=== PATIENT | female | born 1965 | race African-American/Black ===

== ENCOUNTER → 2020-12-19 | Outpatient (CLI) | payer OTHER ==
--- NOTE | 2020-12-19 13:13 | FL ---
EXAMINATION TYPE: FL barium swallow DATE OF EXAM: 12/19/2020 CLINICAL INDICATION: 55-year-old female K21.00 GERD with esophagitis COMPARISON: None Total Fluoroscopy Time: 1 minute 30 seconds 40 images obtained. FINDINGS: The swallowing mechanism is normal and hypopharyngeal anatomy is preserved. The cervical and thoracic portions have a normal course and caliber and normal motility. The mucosa is normal and no persistent filling defect is encountered. There is a moderate sized sliding hiatal hernia. The size varies by respiration. There is spontaneous severe gastroesophageal reflux that occurs variably with normal respiration. IMPRESSION: 1. Moderate-sized sliding hiatal hernia and severe spontaneous gastroesophageal reflux. Both of these vary with normal respiration. 2. No mucosal abnormality or abnormal filling defect.
== END | disposition home or self-care (01) ==
LOC: RADUSWWP 09:42 → MERGE 10:00
PROVIDERS: ATTEND Surgery Plastic and Reconstructive Surgery
DX: K21.9 Gastro-esophageal reflux disease without esophagitis (principal); K44.9 Diaphragmatic hernia without obstruction or gangrene
CPT/HCPCS: 74220

== ENCOUNTER 2021-01-09 09:36 | Day surgery (SDC) | payer OTHER ==
[2021-01-07 15:58] VITALS: BMI 31.9
--- NOTE | 2021-01-09 07:40 | P.GSHP ---
History of Present Illness H&P Date: 01/09/21 CHIEF COMPLAINT: GERD HISTORY OF PRESENT ILLNESS: The patient is a 55-year-old female who presents reports gastroesophageal reflux disease. Upper endoscopy was offered for further evaluation and management. PAST MEDICAL HISTORY: Please see list. PAST SURGICAL HISTORY: Please see list. MEDICATIONS: Please see list. ALLERGIES: Please see list. SOCIAL HISTORY: No illicit drug use FAMILY HISTORY: No reports of Crohn disease or ulcerative colitis. REVIEW OF ORGAN SYSTEMS: CONSTITUTIONAL: No reports of fevers or chills. GI: Denies any blood in stools or constipation. PHYSICAL EXAM: VITAL SIGNS: Stable GENERAL: Well-developed and pleasant in no acute distress. HEENT: No scleral icterus. Extraocular movements grossly intact. Moist buccal mucosa. NECK: Supple without lymphadenopathy. CHEST: Unlabored respirations. Equal bilateral excursions. CARDIOVASCULAR: Regular rate and rhythm. Distal 2+ pulses. ABDOMEN: Soft, nondistended. MUSCULOSKELETAL: No clubbing, cyanosis, or edema. ASSESSMENT: 1. Gastroesophageal reflux disease PLAN: 1. Recommend proceeding with an upper endoscopy Past Medical History Past Medical History: COPD, Deep Vein Thrombosis (DVT), GERD/Reflux Additional Past Medical History / Comment(s): DVT - LEFT LEG History of Any Multi-Drug Resistant Organisms: None Reported Past Surgical History: Orthopedic Surgery Additional Past Surgical History / Comment(s): ARTHROSCOPIC RIGHT KNEE SURGERY, COLONOSCOPU Past Anesthesia/Blood Transfusion Reactions: No Reported Reaction Smoking Status: Former smoker - Past Family History Father Family Medical History: Cancer Additional Family Medical History / Comment(s): LUNG CANCER Brother(s) Family Medical History: Cancer Additional Family Medical History / Comment(s): COLON CANCER Medications and Allergies Home Medications Medication Instructions Recorded Confirmed Type Pravastatin Sodium [Pravachol] 80 mg PO HS 01/07/21 01/07/21 History Rivaroxaban [Xarelto] 20 mg PO DAILY 01/07/21 01/07/21 History Allergies Allergy/AdvReac Type Severity Reaction Status Date / Time No Known Allergies Allergy Verified 01/07/21 15:38
[~2021-01-09 09:36] MED LIST: LACTATED RINGERS 1,000 ML IV SCH; LIDOCAINE 1% (10MG/ML) FOR IV START INTRADERMA PRN
[2021-01-09 09:51] VITALS: TEMP 97.2
[2021-01-09] MEDS ORDERED: LIDOCAINE 1% INJ 10MG/ML (20 ML MDV) ONE (10:57)
[2021-01-09] MEDS ORDERED: PROPOFOL 10 MG/ML 20 ML VIAL IV ONE (10:57)
[2021-01-09 11:33] VITALS: BP 116/80; PULSE 76; RESP 16
--- NOTE | 2021-01-09 11:40 | P.PCN ---
Date of Procedure: 01/09/21 Description of Procedure: PREOPERATIVE DIAGNOSIS: Gastroesophageal reflux disease. POSTOPERATIVE DIAGNOSIS: Duodenitis Gastritis. Gastroesophageal reflux disease. Diaphragmatic hiatal hernia OPERATION: Esophagogastroduodenoscopy with biopsies along antrum and duodenum and esophagus SURGEON: Lexie Santiago MD ANESTHESIA: MAC. INDICATIONS: The patient is a 55-year-old female who presents with a history of reflux disease. Benefits and risks of the procedure were described. Informed consent was obtained. DESCRIPTION: The patient was brought into the endoscopy suite and laid in the left lateral decubitus position. An Olympus gastroscope was passed along the posterior oropharynx down to the distal esophagus where the squamocolumnar junction was encountered at 32 cm from the incisors. The stomach was entered and no bile reflux was found. Additional findings are listed below. Biopsies with cold forceps were obtained of the antrum. The first through third portion of the duodenum was examined and cold biopsy forceps obtained for celiac disease. Retroflexion of the scope confirmed Hill grade 4 lower esophageal valve. The squamocolumnar junction demonstrated LA grade B erosive esophagitis. The stomach was desufflated. The patient tolerated the procedure well. FINDINGS: Squamocolumnar junction 33 cm from the incisors. Diaphragmatic hiatus at 38 cm. Hiatal hernia, 5 cm Hill grade 5 lower esophageal valve. LA grade C erosive esophagitis. Cold biopsies obtained for celiac disease Chronic gastritis RECOMMENDATIONS: Upper endoscopy as needed. Plan - Discharge Summary Discharge Rx Participant: No New Discharge Prescriptions: Continue Rivaroxaban [Xarelto] 20 mg PO DAILY Pravastatin Sodium [Pravachol] 80 mg PO HS Discharge Medication List Pravastatin Sodium [Pravachol] 80 mg PO HS 01/07/21 [History] Rivaroxaban [Xarelto] 20 mg PO DAILY 01/07/21 [History] Follow up Appointment(s)/Referral(s): Lexie Santiago MD [STAFF PHYSICIAN] - 01/24/21 Patient Instructions/Handouts: Hiatal Hernia (DC) Discharge Disposition: HOME SELF-CARE
== END 2021-01-09 12:28 | disposition home or self-care (01) ==
LOC: ORWHC2ENDO 09:36
PROVIDERS: ATTEND Surgery Plastic and Reconstructive Surgery
DX: K22.10 Ulcer of esophagus without bleeding (principal); K29.50 Unspecified chronic gastritis without bleeding; A04.8 Other specified bacterial intestinal infections; K22.70 Barrett's esophagus without dysplasia; K21.9 Gastro-esophageal reflux disease without esophagitis; K44.9 Diaphragmatic hernia without obstruction or gangrene; J44.9 Chronic obstructive pulmonary disease, unspecified; Z86.718 Personal history of other venous thrombosis and embolism; Z98.890 Other specified postprocedural states; Z87.891 Personal history of nicotine dependence; Z80.1 Family history of malignant neoplasm of trachea, bronchus and lung; Z80.0 Family history of malignant neoplasm of digestive organs; Z79.01 Long term (current) use of anticoagulants; Z79.899 Other long term (current) drug therapy
CPT/HCPCS: 88305; 88342; 43239; J2001; J2704

== ENCOUNTER → 2021-01-09 | Outpatient (CLI) | payer OTHER ==
--- NOTE | 2021-01-10 10:27 | MR ---
EXAMINATION TYPE: MR knee RT wo con DATE OF EXAM: 01/09/2021 COMPARISON: Outside bilateral knee x-rays December 19, 2020 HISTORY: Right knee pain, painful kneecap, and swelling for over 10 years TECHNIQUE: Multiplanar, multisequence imaging of the right knee is performed without IV contrast. FINDINGS: MEDIAL MENISCUS: Anterior and posterior horns are intact without tear. LATERAL MENISCUS: Anterior and posterior horns are intact without tear. CRUCIATE LIGAMENTS: The anterior and posterior cruciate ligaments are intact and unremarkable. COLLATERAL LIGAMENTS: The medial collateral ligament and lateral collateral ligament complex are inta ct and unremarkable. EXTENSOR MECHANISM: Visualized quadriceps and patellar tendons are intact. EFFUSION: Small to moderate size suprapatellar joint effusion. POPLITEAL CYST: Moderate size popliteal/carl cyst measuring 6.7 cm long axis sagittal image 8. TRICOMPARTMENT SPACES: [id number] tricompartment joint space loss and mild tricompartment spurr ing. CARTILAGE: Some early chondromalacia patella with some cartilaginous loss upper to mid pole level and some fissuring. No full-thickness loss seen. Fissuring and cartilaginous loss medial tibiofemoral co mpartment without full-thickness loss. BONE MARROW SIGNAL: No focal abnormal marrow signal is appreciated. OTHER: No additional significant abnormality is appreciated. IMPRESSION: No meniscal or ligamentous tear is seen. Mild to moderate tricompartment degenerative vijay nges as detailed above. Small to moderate size suprapatellar joint effusion. Moderate-sized popliteal cyst.
== END | disposition home or self-care (01) ==
LOC: RADMRIMAIN 19:18
PROVIDERS: ATTEND Orthopaedic Surgery
DX: M25.461 Effusion, right knee (principal)

== ENCOUNTER → 2021-02-21 | Outpatient (CLI) | payer OTHER ==
[2021-02-21 14:13] LABS: Basophils % (A) 1 %; Eosinophils # (A) 0.2 k/uL (0-0.7); Eosinophils % (A) 2 %; HCT 42.5 % (34.0-46.0); HGB 13.3 gm/dL (11.4-16.0); Lymphocytes # (A) 2.7 k/uL (1.0-4.8); Lymphocytes % (A) 37 %; MCH 26.3 pg (25.0-35.0); MCHC 31.3 g/dL (31.0-37.0); Mean Platelet Volume 7.3; Monocytes # (A) 0.5 k/uL (0-1.0); Monocytes % (A) 7 %; Neutrophils # (A) 3.7 k/uL (1.3-7.7); Neutrophils % (A) 51 %; Platelet Count 252 k/uL (150-450); RBC 5.06 m/uL (3.80-5.40); RDW 12.9 % (11.5-15.5); WBC 7.3 k/uL (3.8-10.6)
[2021-02-21 14:31] LABS: Potassium 4.6 mmol/L (3.5-5.1)
== END | disposition home or self-care (01) ==
LOC: LABPAT 12:30
PROVIDERS: ATTEND Orthopaedic Surgery
DX: Z01.818 Encounter for other preprocedural examination (principal); I49.1 Atrial premature depolarization; M23.91 Unspecified internal derangement of right knee
CPT/HCPCS: 36415; 80051; 85025; 93005

== ENCOUNTER 2021-02-28 10:16 | Day surgery (SDC) | payer OTHER ==
[2021-02-21 10:31] VITALS: BMI 32.5
--- NOTE | 2021-02-27 14:36 | HP ---
HISTORY AND PHYSICAL DATE OF SURGERY: 02/28/2021 Grecia Hackett is a 55-year-old patient seen with progressive right knee pain. We discussed options for treatment. She elected to proceed with right knee arthroscopy. Consent was obtained. PAST MEDICAL HISTORY: Hyperlipidemia, gastroesophageal reflux disease. PAST SURGICAL HISTORY: Right knee arthroscopy. DAILY MEDICATIONS: Prilosec, pravastatin, ibuprofen, Xarelto. ALLERGIES: NONE. SOCIAL HISTORY: She denies tobacco use. PHYSICAL EVALUATION OF THE RIGHT KNEE: Range of motion is zero to 130. Mild effusion. Tenderness, medial joint line. Tenderness, lateral joint line. Positive medial Tony's. Ligaments stable. Hip rotation without pain. Distal neurovascular exam intact. Radiographs of the right knee revealed mild osteoarthritis. MRI right knee revealed osteoarthritis and effusion. IMPRESSION: 1. Internal derangement of right knee with osteochondral tear. 2. Hyperlipidemia. 3. Gastroesophageal reflux disease. PLAN: Right knee arthroscopy with chondroplasty and debridement. MMODL / IJN: [id number] /
[~2021-02-28 10:16] MED LIST changes: +DEXAMETHASONE SOD PHOSPHATE 4 MG/ML 1 ML VIAL IV ONE; +HYDROmorphone 0.5 MG/0.5 ML SYRINGE IVP PRN; +METOCLOPRAMIDE 5 MG/ML 2 ML VIAL IVP PRN; +ONDANSETRON 4 MG/2 ML VIAL IVP ONE
[2021-02-28 10:39] VITALS: RESP 16
[2021-02-28] MEDS ORDERED: LIDOCAINE 1% (10MG/ML) FOR IV START INTRADERMA ONE (10:41)
[2021-02-28] MEDS ORDERED: LACTATED RINGERS 1,000 ML IV ONE (10:42)
[2021-02-28] MEDS ORDERED: SUCCINYLCHOLINE CHLORIDE 100 MG/5 ML SYR IV ONE (13:01)
[2021-02-28] MEDS ORDERED: fentaNYL (PF) 50 MCG/ML 2 ML AMP ONE (13:01)
[2021-02-28] MEDS ORDERED: MIDAZOLAM 2 MG/2 ML VIAL ONE (13:01)
[2021-02-28] MEDS ORDERED: PROPOFOL 10 MG/ML 20 ML VIAL IV ONE (13:01)
[2021-02-28] MEDS ORDERED: BUPIVACAINE (PF) 0.25% 30 ML VIAL INTRAARTIC ONE ×2 (13:09→13:42)
--- NOTE | 2021-02-28 14:00 | P.OP ---
Date of Procedure: 02/28/21 Preoperative Diagnosis: Internal derangement right knee Postoperative Diagnosis: 1. Tear lateral meniscus right knee 2. Grade 4 chondromalacia medial femoral condyle right knee 3. Grade 2 chondromalacia lateral femoral condyle right knee 4. Grade 4 chondromalacia patellofemoral joint right knee 5. Reactive synovitis medial, lateral and suprapatellar compartments right knee Procedure(s) Performed: 1. Arthroscopic partial lateral meniscectomy right knee 2. Arthroscopic microfracture medial femoral condyle right knee 3. Arthroscopic chondroplasty medial femoral condyle, lateral femoral condyle and patella right knee 4. Arthroscopic partial synovectomy medial, lateral and suprapatellar compartments right knee Anesthesia: BILLA, local Surgeon: Rush Blair Estimated Blood Loss (ml): 8 Pathology: none sent Condition: stable Disposition: PACU Indications for Procedure: 55-year-old patient seen with progressive right knee pain. After treatment options were discussed, she elected to proceed with arthroscopy. Operative Findings: See description of procedure Description of Procedure: Patient was taken to the operative suite. Patient underwent a general anesthetic by the department of anesthesia. Patient was given preoperative antibiotics. The right lower extremity was placed in a well-padded arthroscopic leg sharma. The right leg was prepped and draped in the normal sterile orthopedic fashion. A lateral parapatellar and suprapatellar incision was made. Trochars were inserted. Arthroscopy was initiated. Suprapatellar pouch revealed diffuse thick reactive synovitis. The patellofemoral joint appeared to articulate congruently. There were grade 3 chondromalacia changes of patella and grade 3/4 chondromalacia changes of the femoral sulcus with large osteochondral tears present. The scope was guided into the medial gutter. No loose bodies or plica were identified. The scope was then guided into the medial compartment. A medial parapatellar incision was made. Trocar inserted followed by probe. The medial meniscus was probed and was found to be stable. There was an area of grade 3/4 chondromalacia medial femoral condyle with some osteochondral flap tears present. There was some reactive synovitis anteriorly. I performed a chondroplasty of the medial femoral condyle getting down to stable osteochondral tissue. I performed a partial synovectomy decompressing the reactive synovitis anteriorly. There was good decompression of synovitis. There was good stability of the residual osteochondral surface medial femoral condyle. I noted an area of grade 4 chondromalacia central portion medial femoral condyle. I performed a microfracture to the area penetrating the bone with resultant bleeding at the microfracture site. The residual osteochondral surface was again found to be stable. Scope and probe were then guided into the intercondylar notch. Cruciates were identified, probed and found to be stable. The scope and probe were then guided into lateral compartment. There was a complex tear posterior horn lateral meniscus. There were grade 2 chondromalacia changes along the lateral femoral condyle weightbearing surface with some osteochondral flap tears. There was thick reactive synovitis anteriorly. I performed a partial lateral meniscectomy getting down to stable meniscal tissue. I performed a chondroplasty of the lateral femoral condyle getting down to stable osteochondral tissue. I performed a partial synovectomy decompressing the reactive synovitis. The residual meniscus was stable. The residual osteochondral surface appeared stable. There was good decompression of the synovitis. The scope was in guided back into the suprapatellar compartment. I introduced a motorized shaver into the super patellar compartment. I debrided some piecemeal fragments of meniscus that I encountered. I performed a chondroplasty of the patella and femoral sulcus getting down to stable osteochondral tissue. I performed a partial synovectomy decompressing the reactive synovitis. The shaver was removed. There was good decompression of synovitis. The residual articular surface appeared stable now noting some exposed bone and femoral sulcus area. I now took one more look on the entire knee, no residual debris. Instruments were now removed from the joint. The joint was infiltrated with .25% Marcaine. Steri-Strips were applied to the portal sites. Sterile dressings were applied. The patient was placed into a DOMINIC hose. No tourniquet was utilized. The patient was awakened, transferred to a bed and taken to recovery stable satisfactory condition.
[2021-02-28 14:10] VITALS: TEMP 97.3
[2021-02-28] MEDS ORDERED: HYDROcodone/APAP 5-325MG 1 EACH TAB ONE (14:42)
[2021-02-28] MEDS ORDERED: HYDROcodone/APAP 5-325MG 1 EACH TAB PO ONE (14:42)
[2021-02-28 15:04] VITALS: BP 143/86; PULSE 94
== END 2021-02-28 15:27 | disposition home or self-care (01) ==
LOC: OR 10:16
PROVIDERS: ATTEND Orthopaedic Surgery
DX: M23.91 Unspecified internal derangement of right knee (principal); M23.200 Derangement of unspecified lateral meniscus due to old tear or injury, right knee; M22.41 Chondromalacia patellae, right knee; M65.861 Other synovitis and tenosynovitis, right lower leg; E78.5 Hyperlipidemia, unspecified; K21.9 Gastro-esophageal reflux disease without esophagitis; Z87.891 Personal history of nicotine dependence; Z86.718 Personal history of other venous thrombosis and embolism; Z98.890 Other specified postprocedural states; Z79.01 Long term (current) use of anticoagulants; Z79.1 Long term (current) use of non-steroidal anti-inflammatories (NSAID); Z79.899 Other long term (current) drug therapy
CPT/HCPCS: 29881; 29879; J2250; J1100; J2765; J0690; J2405; J3010; J0330; J2704

== ENCOUNTER → 2021-07-18 | Outpatient (CLI) | payer OTHER ==
--- NOTE | 2021-07-24 07:34 | MM ---
Reason for Exam: Screening (asymptomatic). Last mammogram was performed 1 year(s) and 8 month(s) ago. Risk Values: Betina 5 year model risk: 0.8%. NCI Lifetime model risk: 5.3%. Tissue Density: There are scattered fibroglandular densities. Findings: Analyzed By CAD. There is no suspicious group of microcalcifications or new suspicious mass in either breast. Overall Assessment: Negative, BI-RAD 1 Management: Screening Mammogram of both breasts in 1 year. A clinical breast exam by your physician is recommended on an annual basis and results should be correlated with mammographic findings. Electronically signed and approved by: Josafat Etienne M.D. Radiologis
== END | disposition home or self-care (01) ==
LOC: RADMAMWWP 15:42
PROVIDERS: ATTEND Family Medicine
DX: Z12.31 Encounter for screening mammogram for malignant neoplasm of breast (principal)
CPT/HCPCS: 77067

== ENCOUNTER → 2021-07-19 | Outpatient (CLI) | payer OTHER ==
[2021-07-20 02:03] LABS: JO-1 IgG Antibody <0.2 AI
== END | disposition home or self-care (01) ==
LOC: LABWHC1 16:29
PROVIDERS: ATTEND Physician Assistant
DX: R76.0 Raised antibody titer (principal)
CPT/HCPCS: 36415; 83516; 86235

== ENCOUNTER → 2021-11-18 | Outpatient (CLI) | payer OTHER ==
--- NOTE | 2021-11-18 11:06 | FL ---
EXAMINATION TYPE: FL barium swallow DATE OF EXAM: 11/18/2021 10:47 AM COMPARISON: 12/19/2020. CLINICAL INDICATION:Female, 56 years old with history of K21.00 GERD; TECHNIQUE: The procedure was explained and patient history elicited. All patient questions were ans wered prior to start of procedure. Multiple spot fluoroscopic images of the esophagus were obtained a fter the oral ingestion of effervescent crystals and liquid barium as the contrast agent. A straw hat washer operator ra diograph of the chest was obtained and reviewed. Fluoroscopic time: 1 minute 26 seconds images: 26 FINDINGS: The esophagus demonstrates normal primary and secondary peristalsis. A few tertiary contractions are visualized. There is delayed transit of oral contrast through the esophagus. The esophageal mucosa is smooth without evidence of focal stricture, ulceration, or abnormal outpouching. There was a hiatal hernia which enlarged on prone imaging. Gastroesophageal reflux was visualized. IMPRESSION: 1. Hiatal hernia 2. Gastroesophageal reflux. 3. Delayed transit of contrast through the esophagus with esophageal dysmotility.
== END | disposition home or self-care (01) ==
LOC: RADUSWWP 09:59
PROVIDERS: ATTEND Surgery Plastic and Reconstructive Surgery
DX: K44.9 Diaphragmatic hernia without obstruction or gangrene (principal); K21.9 Gastro-esophageal reflux disease without esophagitis
CPT/HCPCS: 74220

== ENCOUNTER 2021-11-28 10:21 | Day surgery (SDC) | payer OTHER ==
--- NOTE | 2021-11-28 07:48 | P.GSHP ---
History of Present Illness H&P Date: 11/28/21 CHIEF COMPLAINT: GERD HISTORY OF PRESENT ILLNESS: The patient is a 56-year-old male who presents reports gastroesophageal reflux disease. Upper endoscopy was offered for further evaluation and management. PAST MEDICAL HISTORY: Please see list. PAST SURGICAL HISTORY: Please see list. MEDICATIONS: Please see list. ALLERGIES: Please see list. SOCIAL HISTORY: No illicit drug use FAMILY HISTORY: No reports of Crohn disease or ulcerative colitis. REVIEW OF ORGAN SYSTEMS: CONSTITUTIONAL: No reports of fevers or chills. GI: Denies any blood in stools or constipation. PHYSICAL EXAM: VITAL SIGNS: Stable GENERAL: Well-developed and pleasant in no acute distress. HEENT: No scleral icterus. Extraocular movements grossly intact. Moist buccal mucosa. NECK: Supple without lymphadenopathy. CHEST: Unlabored respirations. Equal bilateral excursions. CARDIOVASCULAR: Regular rate and rhythm. Distal 2+ pulses. ABDOMEN: Soft, nondistended. MUSCULOSKELETAL: No clubbing, cyanosis, or edema. ASSESSMENT: 1. Gastroesophageal reflux disease PLAN: 1. Recommend proceeding with an upper endoscopy Past Medical History Past Medical History: COPD, Deep Vein Thrombosis (DVT), GERD/Reflux Additional Past Medical History / Comment(s): Hx DVT to left leg. History of Any Multi-Drug Resistant Organisms: None Reported Past Surgical History: Orthopedic Surgery Additional Past Surgical History / Comment(s): EGD, Colonoscopy, Athroscopic Right Knee Surgery. Past Anesthesia/Blood Transfusion Reactions: No Reported Reaction Smoking Status: Former smoker - Past Family History Father Family Medical History: Cancer Brother(s) Family Medical History: Cancer Medications and Allergies Home Medications Medication Instructions Recorded Confirmed Type Pravastatin Sodium [Pravachol] 80 mg PO HS 01/07/21 11/26/21 History Omeprazole [PriLOSEC] 20 mg PO BID 02/21/21 11/26/21 History Albuterol Inhaler [Ventolin Hfa 1 - 2 puff INHALATION Q6HR PRN 11/26/21 11/26/21 History Inhaler] Tiotropium 18 Mcg/Puff [Spiriva] 1 puff INHALATION DAILY 11/26/21 11/26/21 History Allergies Allergy/AdvReac Type Severity Reaction Status Date / Time No Known Allergies Allergy Verified 11/26/21 11:57
[~2021-11-28 10:21] MED LIST changes: -DEXAMETHASONE SOD PHOSPHATE 4 MG/ML 1 ML VIAL IV ONE; -HYDROmorphone 0.5 MG/0.5 ML SYRINGE IVP PRN; -LIDOCAINE 1% (10MG/ML) FOR IV START INTRADERMA PRN; -METOCLOPRAMIDE 5 MG/ML 2 ML VIAL IVP PRN; -ONDANSETRON 4 MG/2 ML VIAL IVP ONE
[2021-11-28 10:46] VITALS: RESP 16; TEMP 97.6
[2021-11-28] MEDS ORDERED: LIDOCAINE 2% INJ 20 MG/ML (2 ML VIAL) ONE (11:13)
[2021-11-28] MEDS ORDERED: PROPOFOL 10 MG/ML 20 ML VIAL IV ONE (11:13)
--- NOTE | 2021-11-28 11:49 | P.PCN ---
Date of Procedure: 11/28/21 Description of Procedure: PREOPERATIVE DIAGNOSIS: Gastroesophageal reflux disease. POSTOPERATIVE DIAGNOSIS: Gastroesophageal reflux disease. Gastritis. Diaphragmatic hiatal hernia Harden's esophagus OPERATION: Esophagogastroduodenoscopy with biopsies along antrum, esophagus, duodenum SURGEON: Lexie Santiago MD ANESTHESIA: MAC. INDICATIONS: The patient is a 56-year-old female who presents with reflux disease. Benefits and risks of the procedure were described. Informed consent was obtained. DESCRIPTION: The patient was brought into the endoscopy suite and laid in the left lateral decubitus position. An Olympus gastroscope was passed along the posterior oropharynx down to the distal esophagus where the squamocolumnar junction was encountered at 33 cm from the incisors. The stomach was entered and no bile reflux was found. Additional findings are listed below. Biopsies with cold forceps were obtained of the antrum. The first through third portion of the duodenum was examined. Retroflexion of the scope confirmed Hill grade 4 lower esophageal valve. The squamocolumnar junction demonstrated LA grade B erosive esophagitis. The stomach was desufflated. The patient tolerated the procedure well. FINDINGS: Squamocolumnar junction 33 cm from the incisors. Diaphragmatic hiatus at 37 cm. Hiatal hernia, 4 cm Hill grade 4 lower esophageal valve. LA grade D erosive esophagitis with biopsies obtained Biopsies obtained of duodenum Chronic gastritis RECOMMENDATIONS: Upper endoscopy as needed. Plan - Discharge Summary Discharge Rx Participant: No New Discharge Prescriptions: Continue Pravastatin Sodium [Pravachol] 80 mg PO HS Omeprazole [PriLOSEC] 20 mg PO BID Tiotropium 18 Mcg/Puff [Spiriva] 1 puff INHALATION DAILY Albuterol Inhaler [Ventolin Hfa Inhaler] 1 - 2 puff INHALATION Q6HR PRN PRN Reason: Shortness Of Breath Discharge Medication List Pravastatin Sodium [Pravachol] 80 mg PO HS 01/07/21 [History] Omeprazole [PriLOSEC] 20 mg PO BID 02/21/21 [History] Albuterol Inhaler [Ventolin Hfa Inhaler] 1 - 2 puff INHALATION Q6HR PRN 11/26/21 [History] Tiotropium 18 Mcg/Puff [Spiriva] 1 puff INHALATION DAILY 11/26/21 [History] Follow up Appointment(s)/Referral(s): Lexie Santiago MD [STAFF PHYSICIAN] - 12/10/21 Patient Instructions/Handouts: Hiatal Hernia (DC) Discharge Disposition: HOME SELF-CARE
[2021-11-28 12:13] VITALS: BP 119/62; PULSE 75
== END 2021-11-28 12:14 | disposition home or self-care (01) ==
LOC: ORWHC2ENDO 10:21
PROVIDERS: ATTEND Surgery Plastic and Reconstructive Surgery
DX: K21.00 Gastro-esophageal reflux disease with esophagitis, without bleeding (principal); K29.50 Unspecified chronic gastritis without bleeding; K44.9 Diaphragmatic hernia without obstruction or gangrene; K22.70 Barrett's esophagus without dysplasia; J44.9 Chronic obstructive pulmonary disease, unspecified; Z86.718 Personal history of other venous thrombosis and embolism; Z87.891 Personal history of nicotine dependence; Z80.9 Family history of malignant neoplasm, unspecified; Z79.899 Other long term (current) drug therapy; Z79.51 Long term (current) use of inhaled steroids
CPT/HCPCS: 88305; 43239; J2704; J2001

== ENCOUNTER → 2022-02-04 | Outpatient (CLI) | payer OTHER ==
[2022-02-04 22:55] LABS: HCT 42.9 % (37.2-46.3); HGB 13.2 g/dL (12.0-15.0); MCH 25.7 pg (27.0-32.0); MCHC 30.8 g/dL (32.0-37.0); MCV 83.6 fL (80.0-97.0); Mean Platelet Volume 10.4 fL (9.5-12.2); NRBC Per 100 WBC 0 /100 WBCS (0.0-0.0); Platelet Count 282 X 10*3/uL (140-440); RBC 5.13 X 10*6/uL (4.10-5.20); RDW 13.4 % (11.5-14.5)
== END | disposition home or self-care (01) ==
LOC: LABPAT 07:39
PROVIDERS: ATTEND Surgery Plastic and Reconstructive Surgery
DX: Z01.812 Encounter for preprocedural laboratory examination (principal); K44.9 Diaphragmatic hernia without obstruction or gangrene
CPT/HCPCS: 85027

== ENCOUNTER 2022-02-07 11:29 | Day surgery (SDC) | payer OTHER ==
--- NOTE | 2022-02-07 00:40 | P.GSHP ---
History of Present Illness H&P Date: 02/07/22 CHIEF COMPLAINT: Paraesophageal hiatal hernia with gastroesophageal reflux disease. HISTORY OF PRESENT ILLNESS: The patient is a 56-year-old female who presents with paraesophageal hiatal hernia. She has completed a barium swallow including upper endoscopy workup. Now she presents for surgical intervention. PAST MEDICAL HISTORY: Please see list. PAST SURGICAL HISTORY: Please see list. MEDICATIONS: Please see list. ALLERGIES: Please see list. SOCIAL HISTORY: No illicit drug use FAMILY HISTORY: No reports of Crohn disease or ulcerative colitis. REVIEW OF ORGAN SYSTEMS: CONSTITUTIONAL: No reports of fevers or chills. GI: Denies any blood in stools or constipation. PHYSICAL EXAM: VITAL SIGNS: Stable GENERAL: Well-developed pleasant and in no acute distress. HEENT: No scleral icterus. Extraocular movements grossly intact. Moist buccal mucosa. NECK: Supple without lymphadenopathy. CHEST: Unlabored respirations. Equal bilateral excursions. CARDIOVASCULAR: Regular rate and rhythm. Distal 2+ pulses. ABDOMEN: Soft, nondistended. No peritoneal signs. MUSCULOSKELETAL: No clubbing, cyanosis, or edema. SKIN: Well-perfused. Good skin turgor. ESOPHAGRAM: Presbyesophagus with esophageal dysmotility and reflux with hiatal hernia ASSESSMENT: 1. Diaphragmatic paraesophageal hiatal hernia with severe gastroesophageal reflux disease. PLAN: 1. Recommend proceeding with a robotic paraesophageal hiatal hernia with possible mesh. 2. Benefits and risks of surgical intervention was discussed including possibility of open technique. 3. Inpatient hospitalization recommended of 2 nights 4. DVT prophylaxis. 5. Antibiotic prophylaxis. 6. She has also completed a very low caloric high-protein diet to address underlying hepatomegaly. 7. Non narcotic pain management including abdominal wall block described 8. Blood sugar glucose described. 9. Weight loss management described. Past Medical History Past Medical History: COPD, Deep Vein Thrombosis (DVT), GERD/Reflux Additional Past Medical History / Comment(s): Hx DVT to left leg. HIATAL HERNIA History of Any Multi-Drug Resistant Organisms: None Reported Past Surgical History: Orthopedic Surgery Additional Past Surgical History / Comment(s): EGD, Colonoscopy, Athroscopic Right Knee Surgery. Past Anesthesia/Blood Transfusion Reactions: No Reported Reaction Smoking Status: Former smoker - Past Family History Father Family Medical History: Cancer Brother(s) Family Medical History: Cancer Medications and Allergies Home Medications Medication Instructions Recorded Confirmed Type Pravastatin Sodium [Pravachol] 80 mg PO HS 01/07/21 02/03/22 History Omeprazole [PriLOSEC] 20 mg PO BID 02/21/21 02/03/22 History Albuterol Inhaler [Ventolin Hfa 1 - 2 puff INHALATION Q6HR PRN 11/26/21 02/03/22 History Inhaler] Tiotropium 18 Mcg/Puff [Spiriva] 1 puff INHALATION DAILY 11/26/21 02/03/22 History Allergies Allergy/AdvReac Type Severity Reaction Status Date / Time No Known Allergies Allergy Verified 02/03/22 09:14
[~2022-02-07 11:29] MED LIST changes: +CHLORHEXIDINE GLUCONATE 15 ML CUP MUCOUS MEM PRN; +DEXAMETHASONE SOD PHOSPHATE 4 MG/ML 1 ML VIAL IV ONE; +HEPARIN SODIUM,PORCINE/PF 5,000 UNIT/0.5 ML SYRINGE SQ PRN; -LACTATED RINGERS 1,000 ML IV SCH; +LIDOCAINE 1% (10MG/ML) FOR IV START INTRADERMA PRN; +MIDAZOLAM 2 MG/2 ML VIAL IV PRN; +ONDANSETRON 4 MG/2 ML VIAL IVP ONE; +PANTOPRAZOLE 40 MG/10 ML VIAL IVP PRN; +SCOPOLAMINE 1 MG/72 HR PATCH TRANSDERM ONE
[2022-02-07] MEDS: LACTATED RINGERS 1,000 ML IV SCH (12:17)
[2022-02-07 12:39] LABS: ALT 23 U/L (4-34); AST 26 U/L (14-36); African American GFR (CKD) >90 (>60 ml/min/1.73 sqM); Albumin 4.4 g/dL (3.5-5.0); Alkaline Phosphatase 113 U/L (38-126); Anion Gap 8 mmol/L; Blood Urea Nitrogen 16 mg/dL (7-17); Calcium 8.9 mg/dL (8.4-10.2); Carbon Dioxide 25 mmol/L (22-30); Chloride 106 mmol/L (98-107); Glucose 97 mg/dL (74-99); Non-African American GFR(CKD) 89 (>60 ml/min/1.73 sqM); Potassium 4.1 mmol/L (3.5-5.1); Sodium 139 mmol/L (137-145); Total Bilirubin 0.4 mg/dL (0.2-1.3); Total Protein 7.6 g/dL (6.3-8.2)
[2022-02-07] MEDS ORDERED: GLYCOPYRROLATE 0.2 MG/ML 2 ML VIAL ONE (14:36)
[2022-02-07] MEDS ORDERED: fentaNYL (PF) 50 MCG/ML 2 ML AMP ONE (14:36)
[2022-02-07] MEDS ORDERED: SUCCINYLCHOLINE CHLORIDE 200 MG/10 ML VIAL IV ONE (14:36)
[2022-02-07] MEDS ORDERED: LIDOCAINE 2% INJ 20 MG/ML (2 ML VIAL) ONE (14:36)
[2022-02-07] MEDS ORDERED: MIDAZOLAM 2 MG/2 ML VIAL ONE (14:36)
[2022-02-07] MEDS ORDERED: ROCURONIUM 10 MG/ML (5 ML VIAL) IV ONE (14:36)
[2022-02-07] MEDS ORDERED: NEOSTIGMINE 1 MG/ML 10 ML VIAL ONE (14:36)
[2022-02-07] MEDS ORDERED: PROPOFOL 10 MG/ML 20 ML VIAL IV ONE (14:36)
[2022-02-07] MEDS ORDERED: KETAMINE 10 MG/ML 20 ML VIAL ONE (14:36)
[2022-02-07] MEDS ORDERED: LIDOCAINE 4% LTA KIT (4 ML) TOPICAL ONE (14:36)
[2022-02-07] MEDS ORDERED: BUPIVACAIN-EPI 0.25%-1:200,000 30 ML VIAL SQ ONE (15:02)
[2022-02-07] MEDS ORDERED: LACTATED RINGERS 1,000 ML IV ONE ×2 (15:45→16:49)
[2022-02-07] MEDS ORDERED: SCOPOLAMINE 1 MG/72 HR PATCH TRANSDERM STA (16:46)
[2022-02-07] MEDS ORDERED: HYDROmorphone 1 MG/ML 1 ML SYRINGE IVP PRN (16:46)
[2022-02-07] MEDS: HYDROmorphone 0.5 MG/0.5 ML SYRINGE IVP PRN ×2 (16:50→17:20)
--- NOTE | 2022-02-07 16:51 | P.OP ---
Date of Procedure: 02/07/22 Description of Procedure: SURGEON: DREA WANG MD PREOPERATIVE DIAGNOSES: 1. Diaphragmatic hiatal hernia 2. Gastroesophageal reflux disease 3. Upper esophageal stricture POSTOPERATIVE DIAGNOSES: 1. Midline paraesophageal diaphragmatic hiatal hernia, 6 cm 2. Gastroesophageal reflux disease 3. Upper esophageal stricture OPERATION: 1. Robotic-assisted da Kaitlin Xi laparoscopic reduction and repair of incarcerated paraesophageal hiatal hernia 6 x 4 cm without mesh 2. Intraoperative esophagogastroduodenoscopy 3. Placement of 56-Palestinian bougie for esophageal strictures ANESTHESIA: General with local anesthetic. ESTIMATED BLOOD LOSS: 5 mL SPECIMENS REMOVED: None COMPLICATIONS: None. FINDINGS: 1. Hiatal defect 6 x 4 cm 2. Hill grade 1 lower esophageal valve after completion of procedure 3. GE junction at 35 cm from the incisors INDICATIONS: The patient is a 56-year-old female who presents with gastroesophageal reflux disease poorly controlled despite medications, history of upper including lower esophageal sphincters from reflux and a symptomatic diaphragmatic hiatal hernia. She completed an esophageal manometry confirming hiatal hernia. Given the severity of her symptoms, particularly of her symptomatic diaphragmatic hiatal hernia, she had elected for surgical intervention. Benefits and risks including bleeding, infection, recurrence, dysphagia, injury to the lung, need for further surgery was described at length. Informed consent was obtained. DESCRIPTION: The patient was brought into the operating room and placed in supine position. Preoperatively she had received subcutaneous DVT prophylaxis. After general induction, the abdomen was prepped and draped in standard sterile fashion. The patient had previously voided prior to coming to the operating room. Ioban draping was placed along the abdomen. A timeout protocol was confirmed with the surgical team, for which the patient's name, procedure to be performed including DVT prophylaxis with bilateral SCDs, and preoperative antibiotics were also confirmed. A robotic da Kaitlin Xi system was prepped and primed. At 12 cm from the xiphoid to just below the umbilicus, proposed port sites were marked with indelible marker along the left axillary line, left mid-clavicular line with each ports were marked 10 cm from each other. A 5 mm 0 degrees laparoscopic trocar entry was performed along the left upper quadrant. The abdomen was insufflated to 15 mmHg pressure she tolerated well. Diagnostic laparoscopy demonstrated no injury to bowel, viscera, or mesentery. The liver surface was unremarkable. No injury had occurred to the small bowel or viscera. Next, one 8 mm robotic port was placed along the right upper abdomen. An 8-mm port was were placed along the left mid abdomen. The camera 12-mm port extended length was maintained along the epigastrium via the hernia defect. Another 8 mm port was placed along the left upper abdominal wall after exchanging the 5 mm port. Please note that the ports were placed at least 20 cm away from the target anatomy. Care was taken to check that each robotic arm were safely away from collision with the bed or the patient. At the epigastrium, a medium sized Marifer liver retractor was placed under direct visualization with the [employer] Coordinator placed under the right shoulder of the patient. The patient was repositioned in reverse Trendelenburg position and 21 after lowering the bed. The robot was docked above the head of the patient. Using a grasper for arm 3, a grasper for arm 2, including hook cautery for arm 1, the robotic system was docked and primed as described. Instruments were interchanged by the research program assistant . I had sat at the console. The gastrohepatic ligament was cleaved using a vessel sealer. Next, the phrenoesophageal ligament was mobilized and the distal esophagus was mobilized circumferentially without injury to the bilateral vagi nerves. The left and right crura was identified. A midline hiatal hernia was found. Mobilization of the distal esophagus into the mediastinum was performed without injury to the vagus nerves. The measured defect was consistent with at least 3 cm axial length and 2 cm width. After extensive dissection, the distal esophagus of at least 2 cm was brought into the abdominal cavity. Once the hiatus and crura was dissected, 2-0 VLOC nonabsorbable suture was placed initially to reapproximate the diaphragmatic hiatus posteriorly. I went to the head of the bed to perform intraoperative esophagogastroduodenoscopy. An Olympus gastroscope was passed through posterior oropharynx, where the GE junction was found distal to the diaphragmatic hiatus. The intra-abdominal esophageal length obtained during the case was over 2 cm. The stomach was entered including duodenum. Retroflexion of the scope confirmed a Hill grade 1 lower esophageal valve. The squamocolumnar junction was at 35 cm. Diaphragmatic hiatus was at 32 cm. The stomach had been desufflated. No evidence of leaks were found either of the mucosal defects of the esophagus or stomach. To address history of upper including lower esophageal strictures, 56-Palestinian bougie was placed for 1 minute and withdrawn. This concluded the endoscopic portion of the case. The robot was undocked from the patient. I re-scrubbed into the case. All instruments and pneumoperitoneum were evacuated from the abdominal cavity. Incisions were reapproximated using 4-0 Monocryl in an interrupted subcuticular fashion. Liquid glue was applied to the skin. Local anesthetic was infiltrated in all wounds for postop analgesia. Multiple intra-abdominal films were obtained. At the end of the procedure, needle, sponge, and instrument count was verified correct by the electrical assembly technician. The patient had tolerated the procedure well and was taken to the postanesthesia unit in stable condition. Intraoperative films were reviewed with the patient's family who was pleased with the level of care. Plan - Discharge Summary Discharge Rx Participant: Yes New Discharge Prescriptions: No Action Pravastatin Sodium [Pravachol] 80 mg PO HS Tiotropium 18 Mcg/Puff [Spiriva] 1 puff INHALATION DAILY Albuterol Inhaler [Ventolin Hfa Inhaler] 1 - 2 puff INHALATION Q6HR PRN PRN Reason: Shortness Of Breath Discharge Medication List Pravastatin Sodium [Pravachol] 80 mg PO HS 01/07/21 [History] Albuterol Inhaler [Ventolin Hfa Inhaler] 1 - 2 puff INHALATION Q6HR PRN 11/26/21 [History] Tiotropium 18 Mcg/Puff [Spiriva] 1 puff INHALATION DAILY 11/26/21 [History] Patient Instructions/Handouts: *[facility] - Scopalamine Patch Instructions
[2022-02-07] MEDS: DEXAMETHASONE SOD PHOSPHATE 4 MG/ML 1 ML VIAL IVP SCH (20:38)
[2022-02-07] MEDS: ONDANSETRON 4 MG/2 ML VIAL IVP SCH (20:38)
[2022-02-07] MEDS: METOCLOPRAMIDE 5 MG/ML 2 ML VIAL IVP SCH (20:38)
[2022-02-07] MEDS: SODIUM CHLORIDE 0.9% 1,000 ML IV SCH (20:39)
[2022-02-08] MEDS: METOCLOPRAMIDE 5 MG/ML 2 ML VIAL IVP SCH ×5 (00:33→23:29)
[2022-02-08] MEDS: ONDANSETRON 4 MG/2 ML VIAL IVP SCH ×5 (00:33→23:28)
[2022-02-08] MEDS: SODIUM CHLORIDE 0.9% 1,000 ML IV SCH ×2 (00:33→09:15)
[2022-02-08] MEDS: DEXAMETHASONE SOD PHOSPHATE 4 MG/ML 1 ML VIAL IVP SCH ×5 (00:33→23:28)
[2022-02-08] MEDS: LACTATED RINGERS 1,000 ML IV SCH (06:19)
[2022-02-08] MEDS: ENOXAPARIN 30 MG/0.3 ML SYRINGE SQ SCH (09:15)
--- NOTE | 2022-02-08 09:58 | FL ---
SINGLE CONTRAST ESOPHAGRAM: CLINICAL HISTORY: 56-year-old female status post hiatal hernia repair with Elyssa fundoplication on 02/07/2022. TECHNIQUE: Single contrast exam performed with 25 ml Isovue-370 contrast. Total fluoroscopy time: 50 seconds. Total images: 20. FINDINGS: The patient swallowed oral contrast without difficulty or delay. Esophageal peristalsis and motility are within normal limits. There are postsurgical changes at the GE junction with relative mild narr owing that results in pooling of contrast in the lower esophagus and intermittently gradual passage i nto the stomach. Some resultant intraesophageal reflux is encountered. There is no evidence of contra st extravasation to suggest leak. No postsurgical free air seen. IMPRESSION: Mild relative obstruction/narrowing at the GE junction allowing for intraesophageal reflux, likely on the basis of some residual postoperative edema. No evidence of leak status post Elyssa fundoplicatio n.
[2022-02-08 11:54] VITALS: BMI 33.2
--- NOTE | 2022-02-08 12:30 | P.PN ---
Progress Note - Text Progress Note Date: 02/08/22 Patient feels short of breath. She is hypoxic on room air with an O2 sat of 86. On exam vital signs are stable. Abdomen is soft. Incision is clean dry intact. Status post repair of hiatal hernia. Patient will be observed today. She'll work on her pulmonary toilet.
--- NOTE | 2022-02-08 14:45 | XR ---
EXAMINATION TYPE: XR chest 1V DATE OF EXAM: 02/08/2022 COMPARISON: NONE HISTORY: Short of breath TECHNIQUE: Single view FINDINGS: There is some coarsening of interstitial pulmonary markings. There is slight blunting of th e costophrenic angles. No heart failure seen. Heart is top normal in size. IMPRESSION: There is some pleural reaction and subsegmental atelectasis at the lung bases. No heart f ailure.
--- NOTE | 2022-02-08 22:11 | P.CONS ---
History of Present Illness - Reason for Consult Consult date: 02/08/22 Medical management - Chief Complaint Chest foot paraesophageal hernia repair - History of Present Illness Patient is a 56-year-old female with a known history of GERD/reflux, history of left leg DVT, hiatal hernia, COPD and prior history of smoking was admitted to the hospital for paraesophageal hernia repair. Patient had work-up including barium swallow and EGD done as an outpatient. Patient is status post paraesophageal hernia repair. Postoperative day 1 Currently denies any complaints of chest pain. Complains of exertional dyspnea with walking to the bathroom. Currently on oxygen at 4 L via nasal cannula. Heart rate 81. Patient has been afebrile. No cough or sputum production. Laboratory data showed sodium 139 potassium 4.1 chloride 106 bicarb is 25 BUN 16 and creatinine 0.76 AST 26 ALT 23 and alk phos 113. Review of Systems Constitutional: Patient denies any fever or chills . No generalized weakness or weight loss. Abdomen: Patient denied nausea vomiting and diarrhea and abdominal pain. Cardiovascular: Patient denies any chest pain. Patient does complain of exertional short of breath no palpitations. Respiratory: patient denied any cough orsputum production. + shortness of breath Neurologic: Patient denied any numbness or tingling headache. Musculoskeletal: Patient denies any complaints of joint swelling or deformity. Skin: Negative Psychiatric: Negative Endocrine: No heat or cold intolerance. No recent weight gain. Genitourinary: No dysuria or hematuria. All other 14 point ROS negative except the above Past Medical History Past Medical History: COPD, Deep Vein Thrombosis (DVT), GERD/Reflux Additional Past Medical History / Comment(s): Hx DVT to left leg. HIATAL HERNIA History of Any Multi-Drug Resistant Organisms: None Reported Past Surgical History: Orthopedic Surgery Additional Past Surgical History / Comment(s): EGD, Colonoscopy, Athroscopic Right Knee Surgery, hernia repair. Past Anesthesia/Blood Transfusion Reactions: No Reported Reaction Past Psychological History: No Psychological Hx Reported Smoking Status: Former smoker Past Alcohol Use History: Rare Additional Past Alcohol Use History / Comment(s): Started smoking at age 13 and quit in 2019, smoked 1 ppd. Past Drug Use History: None Reported - Past Family History Father Family Medical History: Cancer Additional Family Medical History / Comment(s): LUNG CANCER Brother(s) Family Medical History: Cancer Additional Family Medical History / Comment(s): COLON CANCER Medications and Allergies Home Medications Medication Instructions Recorded Confirmed Type Pravastatin Sodium [Pravachol] 80 mg PO HS 01/07/21 02/07/22 History Albuterol Inhaler [Ventolin Hfa 1 - 2 puff INHALATION Q6HR PRN 11/26/21 02/07/22 History Inhaler] Tiotropium 18 Mcg/Puff [Spiriva] 1 puff INHALATION DAILY 11/26/21 02/07/22 History Allergies Allergy/AdvReac Type Severity Reaction Status Date / Time No Known Allergies Allergy Verified 02/07/22 11:54 Physical Exam Vitals: Vital Signs Temp Pulse Resp BP BP Pulse Ox 02/08/22 08:16 17 92 L 02/08/22 08:00 98.7 F 87 17 152/82 86 L 02/08/22 01:51 98.3 F 83 158/84 94 L 02/07/22 21:33 76 78 L 02/07/22 19:40 97.6 F 56 L 18 165/92 98 02/07/22 19:03 67 146/88 97 02/07/22 18:48 49 L 160/92 97 02/07/22 18:46 48 L 169/85 97 02/07/22 18:41 76 78 L 02/07/22 18:18 60 164/87 99 02/07/22 18:16 97.7 F 57 L 17 164/87 98 02/07/22 17:40 54 L 16 150/84 96 02/07/22 17:25 53 L 16 144/78 97 02/07/22 17:10 55 L 14 154/86 95 02/07/22 16:55 73 18 160/84 98 02/07/22 16:40 98.3 F 95 16 164/79 98 02/07/22 12:01 97.0 F L 63 15 105/68 96 Intake and Output 02/07/22 02/08/22 02/08/22 22:59 06:59 14:59 Intake Total 1300 2110 Output Total 5 Balance 1295 2110 Intake: IV 1300 Intake, IV Titration 1610 Amount Sodium Chloride 0.9% 1, 1560 000 ml @ 130 mls/hr IV . Q7H42M [facility] Rx#:[id number] ceFAZolin 2 gm In Sodium 50 Chloride 0.9% 50 ml @ 100 mls/hr IVPB ONCE PRN Rx# :[id number] Oral 500 Output: Estimated Blood Loss 5 Other: # Voids 4 Weight 99 kg PHYSICAL EXAMINATION: Patient is lying in the bed comfortably, no acute distress, awake alert and oriented.. HEENT: Normocephalic. Neck is supple. Pupils reactive. Nostrils clear. Oral cavity is moist. Neck reveals no JVD, carotid bruits, or thyromegaly. CHEST EXAMINATION: Trachea is central. Symmetrical expansion. Bibasilar diminished sounds. No wheezing or rhonchi. CARDIAC: Normal S1, S2 with no gallops. No murmurs ABDOMEN: Soft. Bowel sounds normal. No organomegaly. No abdominal bruits. Extremities: reveal no edema. No clubbing or cyanosis Neurologically awake, alert, oriented x3 with well-coordinated movements. No focal deficits noted Skin: No rash or skin lesions. Psychiatric: Cooperative. Nonsuicidal Musculoskeletal: No joint swelling or deformity. Normal range of motion. Results CBC & Chem 7: 02/07/22 12:15 Assessment and Plan Assessment: Status post laparoscopic paraesophageal hernia repair. Postoperative day 1 Hypoxia with possible pulmonary vascular congestion COPD Prior history of smoking DVT prophylaxis with Lovenox subcu Prior history of left leg DVT Hiatal hernia GERD Plan: Patient will be continued oxygen supplementation and encourage incentive spirometry. Chest x-ray was ordered and patient is currently not receiving any IV fluids. Continue with duo nebs and follow-up closely. Further recommendations based on the clinical course. Thank you for your consult. Time with Patient: Greater than 30
[2022-02-09] MEDS: METOCLOPRAMIDE 5 MG/ML 2 ML VIAL IVP SCH ×3 (05:50→16:53)
[2022-02-09] MEDS: ONDANSETRON 4 MG/2 ML VIAL IVP SCH ×3 (05:50→16:54)
[2022-02-09] MEDS: DEXAMETHASONE SOD PHOSPHATE 4 MG/ML 1 ML VIAL IVP SCH ×3 (05:50→16:54)
[2022-02-09] MEDS: IPRATROPIUM 0.5 MG/2.5 ML NEBU INHALATION SCH ×5 (06:50→20:28)
[2022-02-09] MEDS: ENOXAPARIN 30 MG/0.3 ML SYRINGE SQ SCH (09:03)
[2022-02-09 09:39] LABS: African American GFR (CKD) 90.6 (60.0-200.0); Anion Gap 10.1 mmol/L (10.00-18.00); BUN/Creat Ratio 12.32 Ratio (12.00-20.00); Blood Urea Nitrogen 10.3 mg/dL (9.0-27.0); Carbon Dioxide 25.9 mmol/L (20.0-27.5); Non-African American GFR(CKD) 78.1 (60.0-200.0); Potassium 4.4 mmol/L (3.5-5.5)
[2022-02-09 10:53] LABS: Basophils % (A) 0 %; Eosinophils % (A) 0 %; HCT 38.2 % (34.0-46.0); HGB 12.6 gm/dL (11.4-16.0); Hypochromasia Slight; Lymphocytes # (A) 1.2 k/uL (1.0-4.8); Lymphocytes % (A) 10 %; MCHC 32.9 g/dL (31.0-37.0); MCV 82.1 fL (80.0-100.0); Mean Platelet Volume 8.9; Monocytes # (A) 0.5 k/uL (0-1.0); Monocytes % (A) 4 %; Neutrophils # (A) 11.2 k/uL (1.3-7.7); Neutrophils % (A) 86 %; Platelet Count 213 k/uL (150-450); RBC 4.66 m/uL (3.80-5.40); RDW 13.6 % (11.5-15.5)
--- NOTE | 2022-02-09 12:04 | P.PN ---
Progress Note - Text Progress Note Date: 02/09/22 The patient's/R brought today. She is satting 91% on 3 L distal cannula. On exam vital signs are stable. Abdomen is soft. Status post repair of hiatal hernia. Patient's hypoxia is improving.. Despite discharged home tomorrow.
[2022-02-10] MEDS: ONDANSETRON 4 MG/2 ML VIAL IVP SCH ×2 (00:21→05:44)
[2022-02-10] MEDS: METOCLOPRAMIDE 5 MG/ML 2 ML VIAL IVP SCH ×2 (00:21→05:44)
[2022-02-10] MEDS: DEXAMETHASONE SOD PHOSPHATE 4 MG/ML 1 ML VIAL IVP SCH ×2 (00:22→05:44)
[2022-02-10] MEDS: ENOXAPARIN 30 MG/0.3 ML SYRINGE SQ SCH (08:01)
[2022-02-10] MEDS: IPRATROPIUM 0.5 MG/2.5 ML NEBU INHALATION SCH ×2 (09:27→13:04)
--- NOTE | 2022-02-10 11:19 | P.DS ---
Providers Date of admission: 02/07/2022 Expected date of discharge: 02/10/22 Attending physician: Lexie Santiago Consults: 02/07/22 19:53 Consult Physician Routine Consulting Provider: Ac Cohen Consult Reason/Comments: medical management Do you want consulting provider notified?: Yes Primary care physician: Gely Bui [facility] Course: POSTOPERATIVE DIAGNOSES: 1. Midline paraesophageal diaphragmatic hiatal hernia, 6 cm 2. Gastroesophageal reflux disease 3. Upper esophageal stricture COURSE: The patient is a 56-year-old female admitted for incarcerated p araesophageal hiatal hernia. Postoperatively, patient was managed for her chronic obstructive pulmonary disease and asthma. Esophagram demonstrated no leaks or obstruction. No recurrent hernias identified. Patient was stable for discharge. Discharge diet and instructions were reviewed. Procedures: OPERATION: 1. Robotic-assisted da Kaitlin Xi laparoscopic reduction and repair of incarcerated paraesophageal hiatal hernia 6 x 4 cm without mesh 2. Intraoperative esophagogastroduodenoscopy 3. Placement of 56-Mauritanian bougie for esophageal strictures ANESTHESIA: General with local anesthetic. ESTIMATED BLOOD LOSS: 5 mL SPECIMENS REMOVED: None COMPLICATIONS: None. FINDINGS: 1. Hiatal defect 6 x 4 cm 2. Hill grade 1 lower esophageal valve after completion of procedure 3. GE junction at 35 cm from the incisors Patient Condition at Discharge: Stable Plan - Discharge Summary Discharge Rx Participant: No New Discharge Prescriptions: New bisacodyL [Dulcolax] 5 mg PO DAILY PRN #10 tab PRN Reason: Constipation Simethicone 40 mg/0.6 ml Drops [Mylicon Drops] 40 mg PO HS PRN #30 ml PRN Reason: Gas Acetaminophen Tab [Tylenol Tab] 1,000 mg PO Q6HR PRN #30 tablet PRN Reason: Pain Omeprazole [PriLOSEC] 40 mg PO DAILY #30 cap Ondansetron Odt [Zofran Odt] 4 mg PO Q8HR PRN #9 tab PRN Reason: Nausea Continue Pravastatin Sodium [Pravachol] 80 mg PO HS Tiotropium 18 Mcg/Puff [Spiriva] 1 puff INHALATION DAILY Albuterol Inhaler [Ventolin Hfa Inhaler] 1 - 2 puff INHALATION Q6HR PRN PRN Reason: Shortness Of Breath Discharge Medication List Pravastatin Sodium [Pravachol] 80 mg PO HS 01/07/21 [History] Albuterol Inhaler [Ventolin Hfa Inhaler] 1 - 2 puff INHALATION Q6HR PRN 11/26/21 [History] Tiotropium 18 Mcg/Puff [Spiriva] 1 puff INHALATION DAILY 11/26/21 [History] Acetaminophen Tab [Tylenol Tab] 1,000 mg PO Q6HR PRN #30 tablet 02/10/22 [Rx] Omeprazole [PriLOSEC] 40 mg PO DAILY #30 cap 02/10/22 [Rx] Ondansetron Odt [Zofran Odt] 4 mg PO Q8HR PRN #9 tab 02/10/22 [Rx] Simethicone 40 mg/0.6 ml Drops [Mylicon Drops] 40 mg PO PCHS PRN #30 ml 02/10/22 [Rx] bisacodyL [Dulcolax] 5 mg PO DAILY PRN #10 tab 02/10/22 [Rx] Follow up Appointment(s)/Referral(s): Lexie Santiago MD [STAFF PHYSICIAN] - 02/18/22 Patient Instructions/Handouts: *[facility] - Managing Your Pain After Surgery Without Opioids, *[facility] - Scopalamine Patch Instructions, How to Use an Incentive Spirometer (GEN), Hiatal Hernia (GEN), Laparoscopic Hiatal Hernia Repair (DC) Activity/Diet/Wound Care/Special Instructions: Liquid diet only for 2 weeks until Feb 21 No lifting over 4 pounds in 4 weeks, Mar 10June shower No soaking in bath tubs for 2 weeks, Feb 21 Please notify your surgeon if you develop nausea and vomiting including new onset of abdominal pain. Please ambulate at all times. Use Simethicone, Gas-X, Tylenol and ibuprofen or Aleve scheduled for the next 24-48 hours for best pain relief. Use ice along incisions for the today to prevent swelling. Please open, cut, crush pills larger than the size of a tic tack No carbonated beverages. No straws. Do not remove scopolamine patch for 3 days, if present Avoiding Gas Avoid drinking through a straw. Do not chew gum or tobacco. These actions cause you to swallow air, which produces excess gas in your stomach. Chew with your mouth closed. Avoid any foods that cause stomach gas and distention. These foods include corn, dried beans, peas, lentils, onions, broccoli, cauliflower and any food from the cabbage family. Avoid carbonated drinks, alcohol, citrus and tomato products. Carbonated drinks (sodas) are not allowed for the first six to eight weeks after surgery. After this time you can try them again in small amounts Clear Liquid Diet The first diet after surgery is the clear liquid diet. It includes the following liquids: Apple juice Cranberry juice Grape juice Chicken broth Beef broth Flavored gelatin (Jell-O) Decaf tea and coffee Caffeinated beverages are permitted based on tolerance [facility] [place] ice Full Liquid Diet The full liquid diet contains anything on the clear liquid diet, plus: Milk, soy, rice and almond (no chocolate) Cream of wheat, cream of rice, grits Strained creamed soups (no tomato or broccoli) Vanilla and strawberry-flavored ice cream Sherbet Blended, custard styled or whipped yogurt (plain or vanilla only) Vanilla and butterscotch pudding (no chocolate or coconut) Nutritional drinks including Ensure, Boost, [place] Instant Breakfast (no chocolate-flavored) Note: Dairy products, such as milk, ice cream and pudding, may cause diarrhea in some people just after surgery. You may need to avoid milk products. If so, substitute them with lactose-free beverages, such as soy, rice, Lactaid or almond milks. Discharge Disposition: HOME SELF-CARE
--- NOTE | 2022-02-10 12:15 | P.PN ---
Subjective Progress Note Date: 02/09/22 Patient is a 56-year-old female with a known history of GERD/reflux, history of left leg DVT, hiatal hernia, COPD and prior history of smoking was admitted to the hospital for paraesophageal hernia repair. Patient had work-up including barium swallow and EGD done as an outpatient. Patient is status post paraesophageal hernia repair. Postoperative day 1 Currently denies any complaints of chest pain. Complains of exertional dyspnea with walking to the bathroom. Currently on oxygen at 4 L via nasal cannula. Heart rate 81. Patient has been afebrile. No cough or sputum production. Laboratory data showed sodium 139 potassium 4.1 chloride 106 bicarb is 25 BUN 16 and creatinine 0.76 AST 26 ALT 23 and alk phos 113. 02/09/2022 Patient is currently sitting on side of the bed. Awake alert and oriented 3. No complaints of chest pain. Shortness of breath is better and patient is able to walk to the bathroom with oxygen on. Denied any complaints of pleuritic chest pain. Patient is not tachycardic. No leg swelling. No complaints of nausea or vomiting. Tolerating oral diet. Patient is currently requiring 3 with oxygen nasal cannula. Home oxygen evaluation will be done. Chest x-ray showed some pleural reaction and atelectasis. No pulmonary vascular congestion. Laboratory data reviewed. Current medications reviewed. Objective - Vital Signs Vital signs: Vital Signs Temp 97.7 F 02/09/22 14:00 Pulse 77 02/09/22 14:00 Resp 16 02/09/22 14:00 BP 153/84 02/09/22 14:00 Pulse Ox 93 L 02/09/22 14:00 FiO2 Intake & Output 02/08/22 02/09/22 02/09/22 18:59 06:59 18:59 Intake Total 570 500 Output Total 300 Balance 570 500 -300 Weight 99 kg Intake: Intake, IV Titration 570 Amount Sodium Chloride 0.9% 1, 520 000 ml @ 130 mls/hr IV . Q7H42M [facility] Rx#:[id number] ceFAZolin 2 gm In Sodium 50 Chloride 0.9% 50 ml @ 100 mls/hr IVPB Q8HR [facility] Rx# :[id number] Oral 500 Output: Urine 300 Other: # Voids 3 3 - Exam PHYSICAL EXAMINATION: Patient is lying in the bed comfortably, no acute distress, awake alert and oriented.. HEENT: Normocephalic. Neck is supple. Pupils reactive. Nostrils clear. Oral cavity is moist. Neck reveals no JVD, carotid bruits, or thyromegaly. CHEST EXAMINATION: Trachea is central. Symmetrical expansion. Bibasilar dimin ished sounds. No wheezing or rhonchi. CARDIAC: Normal S1, S2 with no gallops. No murmurs ABDOMEN: Soft. Bowel sounds normal. No organomegaly. No abdominal bruits. Extremities: reveal no edema. No clubbing or cyanosis Neurologically awake, alert, oriented x3 with well-coordinated movements. No focal deficits noted Skin: No rash or skin lesions. Psychiatric: Cooperative. Nonsuicidal Musculoskeletal: No joint swelling or deformity. Normal range of motion. - Labs CBC & Chem 7: 02/09/22 04:20 02/09/22 04:20 Labs: Abnormal Lab Results - Last 24 Hours (Table) 02/09/22 02/09/22 Range/Units 04:20 04:20 WBC 13.0 H (3.8-10.6) k/uL Neutrophils # 11.2 H (1.3-7.7) k/uL Glucose 139 H (70-110) mg/dL Assessment and Plan Assessment: Status post laparoscopic paraesophageal hernia repair. Postoperative day 2 Hypoxia requiring oxygen at 3 L via nasal cannula. COPD Prior history of smoking DVT prophylaxis with Lovenox subcu Prior history of left leg DVT Hiatal hernia GERD Plan: Patient will be continued oxygen supplementation and encourage incentive sp irometry. Home oxygen evaluation will be done. Encourage incentive spirometry. Chest x-ray showed some pleural reaction and atelectasis. No congestion.. Continue with duo nebs and follow-up closely. Further recommendations based on the clinical course. Time with Patient: Greater than 30
[2022-02-10 14:59] VITALS: BP 156/98; PULSE 82; RESP 17; TEMP 97.7
== END 2022-02-10 15:08 | disposition home or self-care (01) ==
LOC: OR 11:29 → 4SSUR 16:38 → OR 02-10 15:08
PROVIDERS: ATTEND Surgery Plastic and Reconstructive Surgery
DX: K22.2 Esophageal obstruction (principal); K44.9 Diaphragmatic hernia without obstruction or gangrene; K21.9 Gastro-esophageal reflux disease without esophagitis; J44.9 Chronic obstructive pulmonary disease, unspecified; Z86.79 Personal history of other diseases of the circulatory system; Z86.718 Personal history of other venous thrombosis and embolism; Z98.890 Other specified postprocedural states; Z87.891 Personal history of nicotine dependence; Z98.51 Tubal ligation status; Z79.899 Other long term (current) drug therapy
CPT/HCPCS: 43281; 94640 ×2; 94760; 80053; 74210; 71045; C1781; J1100 ×4; J2765 ×4; J0690 ×2; J2405 ×4; J1650 ×3; C9113; J1170; Q9967; J1644

== ENCOUNTER → 2023-02-05 | Outpatient (CLI) | payer OTHER ==
--- NOTE | 2023-02-05 19:19 | XR ---
EXAMINATION TYPE: XR chest 2V DATE OF EXAM: 02/05/2023 12:53 PM CLINICAL INDICATION:Female, 57 years old with history of R05.9 cough; [facility] COMPARISON: Chest radiographs from 02/08/2022 TECHNIQUE: XR chest 2V Frontal and lateral views of the chest. FINDINGS: Lungs/Pleura: There is no evidence of pleural effusion, focal consolidation, or pneumothorax. Pulmonary vascularity: Unremarkable. Heart/mediastinum: Cardiomediastinal silhouette is unremarkable. Musculoskeletal: No acute osseous pathology. Other findings: None IMPRESSION: No acute cardiopulmonary disease/process.
== END | disposition home or self-care (01) ==
LOC: RADXRMAIN 12:35
PROVIDERS: ATTEND Family Medicine
DX: R05.9 Cough, unspecified (principal)
CPT/HCPCS: 71046

== ENCOUNTER → 2023-07-15 | Outpatient (CLI) | payer OTHER ==
--- NOTE | 2023-07-19 22:19 | MR ---
EXAMINATION TYPE: MR brain wo/w con DATE OF EXAM: 07/15/2023 COMPARISON: NONE HISTORY: 58-year-old female R07.2 Precordial pain / I25.10 Atherosclerotic hea. Unsteady gait, dizziness TECHNIQUE: Multiplanar, multisequence images of the brain and brainstem were acquired before and aft er administration of 10 mL IV Gadavist. Diffusion weighted imaging is performed. FINDINGS: No evidence for acute infarction, hemorrhage, mass, mass effect, midline shift, herniation, effacemen t of basal cisterns, or extra-axial fluid collection. The ventricles and sulci are age-appropriate. While the major intracranial flow voids appear intact, there is diminutive caliber to the bilateral v ertebral and basilar arteries and anatomic variation with persistent origin of the bilateral PC As. T2/FLAIR weighted sequences show mild scattered bright white matter changes particularly in the periv entricular and deep white matter regions of the left cerebral hemisphere with less then 5 foci and tr orin burden in the right cerebral hemisphere with less than 5 foci in the subinsular and subcortical r egions of the frontotemporal regions. Midline structures demonstrate normal morphology. There is a Chiari I malformation with 1.6 cm of cer ebellar tonsillar ectopia and beaked appearance. Crowding of the foramen magnum and a small 5 x 6 mm syrinx noted at the C2 level within the upper cervical spinal cord. Post contrast images demonstrate no evidence of pathologic enhancement. Dural venous sinuses are pat ent. Mild mucosal thickening ethmoid air cells. Globes are intact. IMPRESSION: 1. Chiari I malformation. There is tonsillar beaking with 1.6 cm of cerebellar tonsillar ectopia. Ass ociated tiny 6 mm syrinx of the upper cervical spinal cord. 2. Trace to mild burden of chronic small vessel ischemic disease. No enhancing intracranial lesions a re otherwise any acute intracranial abnormality seen. 3. 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 Correlate for any chronic sympto ms of potential vertebrobasilar insufficiency.
== END | disposition home or self-care (01) ==
LOC: RADMRIMAIN 06:30
PROVIDERS: ATTEND Family Medicine
DX: G93.5 Compression of brain (principal); I67.82 Cerebral ischemia; R26.89 Other abnormalities of gait and mobility; R07.2 Precordial pain
CPT/HCPCS: 70553; A9585

== ENCOUNTER → 2023-11-16 | Outpatient (CLI) | payer OTHER ==
--- NOTE | 2023-11-16 09:46 | MR ---
EXAMINATION TYPE: MR MRA/MRV head wo con DATE OF EXAM: 11/16/2023 COMPARISON: MRI brain 07/15/2023 HISTORY: Chiari malformation, bilateral weakness TECHNIQUE: Time of flight images focusing on the [place] were performed without contrast. MR A and MRV of the brain was performed utilizing two-dimensional [id number] technique. 2-D and 3-D postprocessing imaging is performed. FINDINGS: There is no evidence for focal stenosis, large vessel occlusion, or discrete aneurysm. Inci dental origin of the bilateral BLAST FURNACE TENDER. Vertebral artery is dominant. There is no evidence of veno us occlusion or collateral circulation. Dominant large occipital sinus which is right of midline and appears to connect with the sigmoid sinus. There is no evidence of sinus thrombosis. Findings of tons illar beaking and cerebellar tonsillar ectopia redemonstrated on survey imaging. IMPRESSION: 1. No evidence for focal stenosis, occlusion or aneurysm. 2. No evidence of venous sinus thrombosis. 3. Dominant large occipital sinus which is right of midline. 4. Findings of Chiari I malformation redemonstrated. [facility], , 11/16/2023 9:43 AM
--- NOTE | 2023-11-16 10:02 | MR ---
EXAMINATION TYPE: MR tspine/lspine wo con DATE OF EXAM: 11/16/2023 COMPARISON: MR brain 07/15/2023 HISTORY: Congenital malformation of the nervous system TECHNIQUE: Multiplanar, multisequence imaging of the thoracolumbar spine is performed without IV cont rast. FINDINGS: The thoracic vertebral bodies have preserved heights and alignment. The osseous structure have normal signal intensity. Thoracic spinal cord appears unremarkable. No evidence for syrinx. Tiny central di sc protrusion at T6-T7 (series 801, image 2). Resultant mild effacement of the anterior thecal sac. N o central canal narrowing. No other evidence of extradural defects or central spinal canal narrowing at any thoracic vertebral body level. Intervertebral discs demonstrate normal signal intensity. The lumbar vertebral bodies have preserved heights without spondylolisthesis. Straightening of the no rmal lumbar lordosis. The osseous structures have normal signal intensity. Lumbar spinal cord appears unremarkable. No evidence for syrinx. The conus medullaris terminates at the T12-L1 disc space and t he distal spinal cord appear unremarkable in regards to their signal intensity and morphology. Minima l multilevel disc desiccation. There is no evidence of extradural defects or central spinal canal carey rowing at any thoracic vertebral body level. Incidental lumbar right foraminal Tarlov cysts and sacr al Tarlov cysts. Tonsillar beaking with 1.7 cm cerebellar tonsillar ectopia is redemonstrated on sagittal sequences. C ervical spinal cord 7 millimeter T2 hyperintense syrinx redemonstrated on sagittal sequences. Multile johnathon degenerative disc disease of the cervical spine without significant central canal stenosis. Exophytic 2.3 cm T1 hypointense right upper pole lesion. Probable cyst. Couple of right mid kidney po sterior lateral exophytic subcentimeter T1 hypointense/T2 hyperintense lesions. Most consistent with probable simple cysts. IMPRESSION: 1. The thoracolumbar spinal cord appears unremarkable without syrinx. 2. Tiny T6-T7 disc protrusion with mild effacement of the anterior thecal sac. No central canal sten osis. 3. Findings of Chiari I malformation with cerebellar tonsillar ectopia redemonstrated. Upper cervica l spinal cord syrinx redemonstrated. [facility], , 11/16/2023 10:00 AM
== END | disposition home or self-care (01) ==
LOC: RADMRIMAIN 06:42
PROVIDERS: ATTEND Neurological Surgery
DX: E23.6 Other disorders of pituitary gland (principal); G93.5 Compression of brain; G95.0 Syringomyelia and syringobulbia; Q79.60 Ehlers-Danlos syndrome, unspecified; Q07.9 Congenital malformation of nervous system, unspecified; M51.24 Other intervertebral disc displacement, thoracic region
CPT/HCPCS: 70544; 72146; 72148

== ENCOUNTER → 2024-08-25 | Outpatient (CLI) | payer OTHER ==
--- NOTE | 2024-08-25 08:22 | CTL ---
EXAMINATION TYPE: CT Low Dose Lung DATE OF EXAM ORDERED: 08/25/2024 COMPARISON: Chest radiograph 02/05/2023 CLINICAL INDICATION: Female, 59 years old with history of Z12.2 LUNG CA SCR Z87.891 [employer]MER S[employer]; PH H, former smoker, 1 pack a day for 30 years, Lung cancer screening, History of Smoking/tobacco use. TECHNIQUE: Low dose computed tomography scan was performed through the chest at 1 mm thick sections a nd reconstructed images in multiple planes at 1 mm and [address] DLP: 124.[address] CTDI: 3.40 mGy Automated exposure control for dose reduction was used. CT DIAGNOSTIC QUALITY: Satisfactory FINDINGS: Nodules: Left lower lobe 2.4 mm pulmonary nodule (series 7, image 31). Anterior right upper lobe 3.3 mm pulmonary nodule (series 7, image 30). LUNGS: COPD: Severity: Mild Fibrosis: Severity: None Lymph nodes: None Other findings: None RIGHT PLEURAL SPACE: Effusion: None Calcification: None Thickening: None Pneumothorax: None LEFT PLEURAL SPACE: Effusion: None Calcification: None Thickening: None Pneumothorax: None HEART: Heart Size: Normal Coronary Calcification: Small Pericardial Effusion: None OTHER FINDINGS: Upper abdomen: Left hepatic lobe 1.3 cm cyst. Couple exophytic right renal cysts with largest in the upper pole measuring up to 2.4 cm. These appear simple. No follow-up recommended. Bony thorax: None Supraclavicular region: None Other: None IMPRESSION: 1. Couple of pulmonary nodules with largest measuring up to 3.3 mm. 2. Mild emphysematous change. CT LUNG RAD AND CT CHEST RECOMMENDATION: Lung-Rad 2 Benign Appearance or Behavior: Continue annual sc reening with LDCT in 12 months. S Modifier (other clinically significant findings): None [facility], , 08/25/2024 8:20 AM
== END | disposition home or self-care (01) ==
LOC: RADCTMAIN 06:49
PROVIDERS: ATTEND Family Medicine
DX: Z12.2 Encounter for screening for malignant neoplasm of respiratory organs (principal); R91.8 Other nonspecific abnormal finding of lung field; J43.9 Emphysema, unspecified; Z87.891 Personal history of nicotine dependence
CPT/HCPCS: 71271